=== PATIENT | female | born 1995 | race Caucasian/White ===

== ENCOUNTER 2022-02-22 19:14 | Outpatient (CLI) | payer MEDICAID, OTHER ==
[~2022-02-22] VITALS: Ht 157.5 cm; Wt 79.0 kg
[2022-02-22 19:32] VITALS: BP 115/65
[2022-02-22] MEDS ORDERED: PNV11TAB5 PO (19:37)
[2022-02-22] MEDS ORDERED: FERR-84 PO (19:37)
[2022-02-22 19:50] VITALS: BP 115/65
[2022-02-22 19:50] LABS: CLARITY,URINE CLEAR; COLOR,URINE ORANGE; GLUCOSE, URINE (UA) NEGATIVE (NEGATIVE); KETONES,URINE 3+ (NEGATIVE); LEUKOCYTE ESTERASE ,URINE NEGATIVE (NEGATIVE); NITRITE,URINE NEGATIVE (NEGATIVE); PROTEIN,URINE NEGATIVE (NEGATIVE)
[2022-02-22 20:12] LABS: BACTERIA,URINE MODERATE /HPF; WBC,URINE 0-2 /HPF
[2022-02-22] MEDS ORDERED: ACETAMINOPHEN 500 MG TAB (TYLENOL) ONE (20:29)
[2022-02-22] MEDS ORDERED: ACETAMINOPHEN 500 MG TAB (TYLENOL) PO ONE (20:30)
[2022-02-22 21:52] VITALS: BP 103/52
[2022-02-22 22:04] LABS: BILIRUBIN,URINE 1+ (NEGATIVE)
== END 2022-02-22 21:55 ==
LOC: WSo 19:14 → LDRP 19:14 → WSo 21:55
PROVIDERS: ATTEND Obstetrics & Gynecology
DX: Z34.90 Encounter for supervision of normal pregnancy, unspecified, unspecified trimester (principal); Z3A.00 Weeks of gestation of pregnancy not specified
CPT/HCPCS: 81000; 87088